=== PATIENT | male | born 1935 | race Caucasian/White ===

== ENCOUNTER 2016-06-23 07:47 | Day surgery (SDC) | payer MEDICARE, BC | END 2016-06-23 16:59 | disposition short-term general hospital (02) | LOC: CLPAIN 07:47 → SURGOP 07:47 → EDSTATUS 09:36 → SURGOP 16:59 | PROC: 3E0U33Z Introduction of Anti-inflammatory into Joints, Percutaneous Approach (ICD-10-PCS; principal; 2016-06-23) | PROC: 3E0U3BZ Introduction of Anesthetic Agent into Joints, Percutaneous Approach (ICD-10-PCS; 2016-06-23) | DX: M46.1 Sacroiliitis, not elsewhere classified (principal); I10 Essential (primary) hypertension; R01.1 Cardiac murmur, unspecified; M47.27 Other spondylosis with radiculopathy, lumbosacral region; J45.909 Unspecified asthma, uncomplicated; M54.30 Sciatica, unspecified side; Z79.82 Long term (current) use of aspirin; Z79.899 Other long term (current) drug therapy; Z98.49 Cataract extraction status, unspecified eye | CPT/HCPCS: G0260-RT; J3301 ==